=== PATIENT | female | born 1960 ===

== ENCOUNTER 2020-06-19 05:40 | Day surgery (SDC) | payer OTHER ==
[~2020-06-19 05:40] MED LIST: AMBIEN10 MG PO; GABAPENT PO; ZANTAC PO; ZOLPI PO; [UNRECOGNIZED DRUG - OTHER] PO
== END 2020-06-19 10:05 | disposition home or self-care (01) ==
LOC: CIR.AMB 05:40
PROVIDERS: ATTEND Surgery Surgery of the Hand
DX: M65.841 Other synovitis and tenosynovitis, right hand (principal); Z20.822 Contact with and (suspected) exposure to COVID-19